=== PATIENT | male | born 1940 | race Caucasian/White ===

== ENCOUNTER → 2017-11-16 | Outpatient (CLI) | payer MEDICARE, OTHER ==
[~2017-11-16] MED LIST: REGADENOSON 0.4 MG/5 ML DISP.SYRIN IVP ONE
== END | disposition home or self-care (01) ==
LOC: NM 09:44
PROVIDERS: ATTEND Internal Medicine Interventional Cardiology
DX: R07.9 Chest pain, unspecified (principal)
CPT/HCPCS: 78452; A9502; J2785

== ENCOUNTER 2018-11-19 08:14 | Outpatient (CLI) | payer MEDICARE, BC ==
[2018-11-19] MEDS ORDERED: REGADENOSON 0.4 MG/5 ML DISP.SYRIN IVP ONE (09:30)
== END 2018-11-19 23:59 | disposition home or self-care (01) ==
LOC: RAD 08:14
PROVIDERS: ATTEND Internal Medicine Interventional Cardiology
DX: I25.10 Atherosclerotic heart disease of native coronary artery without angina pectoris (principal)
CPT/HCPCS: 78452; A9502; J2785

== ENCOUNTER 2018-11-22 10:51 | Outpatient (CLI) | payer MEDICARE, BC, OTHER ==
[~2018-11-22] VITALS: Ht 175.3 cm; Wt 74.8 kg
[2018-11-22 11:44] LABS: CREATININE 0.9 mg/dL (0.6-1.3)
[2018-11-22] MEDS ORDERED: IOHEXOL-350 100 ML VIAL IV ONE (11:46)
[2018-11-22] MEDS ORDERED: CT SWABBABLE VALVE TRANS SET 1 EA INFUS.SET MC ONE (11:47)
[2018-11-22] MEDS ORDERED: IV NS 0.9% 250 ML IV ONE (11:47)
[2018-11-22] MEDS ORDERED: METOPROLOL TARTRATE INJ 5 MG/5 ML AMPUL ONE ×2 (11:56→11:58)
[2018-11-22] MEDS ORDERED: METOPROLOL TARTRATE INJ 5 MG/5 ML AMPUL IVP ONE (12:30)
[2018-11-22] MEDS ORDERED: IV NS 0.9% 500 ML IV ONE (12:30)
[2018-11-22 12:40] LABS: CARBON DIOXIDE 28 mmol/L (21-32); CHLORIDE 98 mmol/L (98-107); CREATININE 0.9 mg/dL (0.6-1.3); GLUCOSE 84 mg/dL (74-106); POTASSIUM 4.5 mmol/L (3.5-5.1); SODIUM SERUM 136 mmol/L (136-145); UREA NITROGEN, BLOOD 17 mg/dL (7-18)
== END 2018-11-22 23:55 | disposition home or self-care (01) ==
LOC: CT 10:51
PROVIDERS: ATTEND Internal Medicine Interventional Cardiology
DX: I25.10 Atherosclerotic heart disease of native coronary artery without angina pectoris (principal); M47.814 Spondylosis without myelopathy or radiculopathy, thoracic region
CPT/HCPCS: 36415; 75574; 80048; 82565; 84520; J3490 ×2; J7050; Q9967